=== PATIENT | female | born 1970 | race Caucasian/White ===

== ENCOUNTER 2016-12-23 14:50 | Emergency (ER) | payer OTHER ==
--- NOTE | 2016-12-23 14:54 | PDOC ---
Rapid Medical Evaluation Chief Complaint: Asthma Time Seen by Provider: 12/23/16 14:52 Medical Evaluation: Allergies Allergy/AdvReac Type Severity Reaction Status Date / Time No Known Allergies Allergy Verified 12/23/16 14:51 12/23/16 14:52 I have performed a brief in-person evaluation of this patient. The patient presents with a chief complaint of: cough and wheezing x 3 days, hx asthma, Pertinent physical exam findings: vss, Lungs clear yue, I have ordered the following: none The patient will proceed to fast track for further evaluation.
[2016-12-23 14:55] VITALS: BP 131/48; PULSE 82; TEMP 98.1; BMI 36.6
[2016-12-23] MEDS ORDERED: ALBUTEROL SO4 2.5/IPRATROPIUM 0.5 INH SOL 3 ML VIAL.NEB. NEB ONE ×2 (15:13→16:18)
--- NOTE | 2016-12-23 15:28 | PDOC ---
History of Present Illness - General Chief Complaint: Asthma Stated Complaint: SOB Time Seen by Provider: 12/23/16 14:52 History Source: Patient Exam Limitations: No Limitations - History of Present Illness Initial Comments: 12/23/16 15:24 46 yr female with cough wheezing for 3 days history of asthma. Pt denies fever or chills, states she has some pain to her left arm worse when lying on the arm at night. no chest pain. Pt has no other medical history. Pt states she was dx last year with a heart murmur had a stress test and holter monitor all was negative. Pt has no history of heart disease. Pt ran out of her inhaler. No intubations. 12/23/16 15:26 Past History - Past Medical History Allergies/Adverse Reactions: Allergies Allergy/AdvReac Type Severity Reaction Status Date / Time No Known Allergies Allergy Verified 12/23/16 14:51 Home Medications: Ambulatory Orders Albuterol Sulfate Inhaler - [Ventolin HFA Inhaler -] 1 - 2 inh PO QID #1 inhaler 12/23/16 Ibuprofen 800 mg PO TID PRN #20 tablet 12/23/16 Prednisone [Deltasone -] 40 mg PO DAILY #10 tablet 12/23/16 Asthma: Yes - Surgical History Cholecystectomy: Yes - Family Disease History Comment:: 12/23/16 15:26 none - Psycho/Social/Smoking Cessation Hx Anxiety: No Suicidal Ideation: No Smoking Status: Yes Smoking History: Never smoked Have you smoked in the past 12 months: No Number of Cigarettes Smoked Daily: 2 Information on smoking cessation initiated: No Hx Alcohol Use: No Drug/Substance Use Hx: No Substance Use Type: None Respiratory Specific PMHX - Complaint Specific PMHX Angina: No Bronchitis: No Pneumonia: No Pulmonary Embolus: No TB (Tuberculosis): No Review of Systems - Review of Systems Able to Perform ROS?: Yes Is the patient limited [place] proficient: No Constitutional: No: Symptoms Reported HEENTM: No: Symptoms Reported Respiratory: Yes: Symptoms reported, See HPI, Cough, Shortness of Breath, Wheezing Cardiac (ROS): No: Symptoms Reported ABD/GI: No: Symptoms Reported : No: Symptoms Reported Musculoskeletal: No: Symptoms Reported Integumentary: No: Symptoms Reported *Physical Exam - Vital Signs Last Vital Signs Temp Pulse Resp BP Pulse Ox 98.1 F 82 18 131/48 100 12/23/16 14:52 12/23/16 14:52 12/23/16 14:52 12/23/16 14:52 12/23/16 14:52 - Physical Exam General Appearance: Yes: Nourished, Appropriately Dressed HEENT: positive: EOMI, NEEL, Normal ENT Inspection, TMs Normal, Pharynx Normal Neck: positive: Supple. negative: Tender Respiratory/Chest: positive: Wheezing (mild exp ) Cardiovascular: positive: Regular Rhythm, Regular Rate Gastrointestinal/Abdominal: positive: Normal Bowel Sounds, Soft Musculoskeletal: positive: Normal Inspection, Vertebral Tenderness (cervical spine radiates to left lateral neck) Extremity: positive: Normal Capillary Refill, Normal Inspection, Normal Range of Motion Integumentary: positive: Normal Color, Dry, Warm Neurologic: positive: Fully Oriented, Alert, Normal Mood/Affect, Normal Response , Motor Strength 5/5 Heart Score/ECG Review - ECG Intrepretation Rhythm: Regular Rhythm - ECG Impressions Normal ECG: Yes Comment:: 12/23/16 16:25 NSR Medical Decision Making - Medical Decision Making 12/23/16 15:27 cc: cough, wheezing , ran out of inhaler speaking full sentences no acute distress vitals stable will give duoneb, CXR, prednisone, EKG , cervical spine xray r/o herniation pt has pain to left lateral neck to arm for 4 days worse when lying on that arm no numbness or tingling denies trauma to arm 12/23/16 16:38 12/23/16 pt improved after nebulizers feels better. 16:39 12/23/16 19:09 *DC/Admit/Observation/Transfer Diagnosis at time of Disposition: Asthma Qualifiers: Asthma severity: mild intermittent Asthma complication type: uncomplicated Qualified Code(s): J45.20 - Mild intermittent asthma, uncomplicated - Discharge Dispostion Disposition: HOME Condition at time of disposition: Good - Prescriptions Prescriptions: Prednisone [Deltasone -] 40 mg PO DAILY #10 tablet Ibuprofen 800 mg PO TID PRN #20 tablet PRN Reason: Pain Albuterol Sulfate Inhaler - [Ventolin HFA Inhaler -] 1 - 2 inh PO QID #1 inhaler - Referrals Referrals: Cabrera Simpson MD [Primary Care Provider] - Reginald Vaz MD [Staff Physician] - - Patient Instructions Additional Instructions: drink pleanty of water to stay hydrated use the inhaler as directed prednisone as directed next dose tomorrow follow with your doctor or rotary drier Dr. Vaz for follow up - Post Discharge Activity Work/School Note: Back to Work
[2016-12-23] MEDS ORDERED: IBUPROFEN 600 MG TABLET (FP) PO ONE ×2 (16:37→16:39)
--- NOTE | 2016-12-26 11:22 | EKG ---
Test Reason : Blood Pressure : / mmHG Vent. Rate : 075 BPM Atrial Rate : 075 BPM P-R Int : 172 ms QRS Dur : 086 ms QT Int : 392 ms P-R-T Axes : 054 021 050 degrees QTc Int : 437 ms NORMAL SINUS RHYTHM NORMAL ECG WHEN COMPARED WITH ECG OF 15-AUG-2005 23:22, QT HAS LENGTHENED Confirmed by PHOEBE CALVO MD ([id number]) on 12/26/2016 11:22:25 AM Referred By: MARLINE Confirmed By:PHOEBE CALVO MD
== END 2016-12-23 17:20 | disposition home or self-care (01) ==
LOC: JERFT 14:50
PROC: 3E0F7GC Introduction of Other Therapeutic Substance into Respiratory Tract, Via Natural or Artificial Opening (ICD-10-PCS; principal; 2016-12-23)
PROC: 3E0F7GC Introduction of Other Therapeutic Substance into Respiratory Tract, Via Natural or Artificial Opening (ICD-10-PCS; 2016-12-23)
DX: J45.20 Mild intermittent asthma, uncomplicated (principal)
CPT/HCPCS: 71020-TC; 72050-TC; 84703; 93005; 93010; 99281-25

== ENCOUNTER 2018-12-29 22:24 | Emergency (ER) | payer SELFPAY ==
--- NOTE | 2018-12-29 22:37 | PDOC ---
History of Present Illness - General History Source: Patient Exam Limitations: No Limitations - General Chief Complaint: Chest Pain Stated Complaint: CHEST PAIN Time Seen by Provider: 12/29/18 22:27 - History of Present Illness Initial Comments: 12/29/18 22:47 The patient is a 48-year-old female who presents to the emergency department with chest discomfort. The patient reports shes been having several weeks of L. sided chest discomfort that radiates to the back and the L. axillary region, thats pinching in quality. The patient reports the symptoms last for 2-3 hours before self-resolving. The patient reports associated symptoms of diaphoresis with exertion denies any modifying factor that alleviates or aggravates the pain. Denies known cholesterol problem, nausea, vomiting, abdominal pain or pain with deep breathing. PAST MEDICAL HISTORY: DM and asthma PAST SURGICAL HISTORY: no significant history FAMILY HISTORY: no family history of heart problem SOCIAL HISTORY: pt denies the use of drug and tobacco. MEDICATIONS: reviewed ALLERGIES: As per nursing notes General: No fevers or chills, no weakness, no weight loss HEENT: No change in vision. No sore throat,. No ear pain CardioVascular: +chest discomfort. No chest pain or shortness of breath Respiratory:No cough, or wheezing. Gastrointestinal: no nausea, vomiting, diarrhea or constipation, No rectal bleeding Genitourinary: No dysuria, hematuria, or frequency Musculoskeletal: No joint or muscle pain or swelling Neurologic: No headache, vertigo, dizziness or loss of consciousness Psychiatric: nor depression Skin: No rashes or easy bruising Endocrine: no increased thirst or abnormal weight change Allergic: no skin or latex allergy All other systems reviewed and normal General: Well-nourished well-developed individual, no acute distress HEENT: Throat: Normal, tonsils normal, no erythema or exudate Neck: Supple, no meningeal signs, no lymphadenopathy Eyes::Pupils equal reactive and round, extraocular motion intact Chest: Nontender to palpation Cardiac: S1-S2 normal, regular rate and rhythm, no murmurs rubs or gallops Respiratory: Lungs clear to auscultation bilateral Abdomen: Soft, nondistended, normal bowel sounds, nontender to palpation diffusely Extremities: Warm, dry, no cyanosis, clubbing, or edema Skin: No rashes Neuro: Alert and oriented x3, nonfocal exam, grossly intact, normal gait Psych: Normal mood and affect Documentation prepared by Chante Cazares, acting as bacteriologist medical for Chetna Samayoa MD. (Chante Cazares) A portion of this note was documented by scribe services under my direction. I have reviewed the details of the note, within reason, and agree with the documentation with the following case summary and management plan written by me. Patient treated in the ED. Nursing notes are reviewed and incorporated into the medical decision-making. Vital signs reviewed. EKG normal sinus rhythm at a rate of [address]-T wave changes normal EKG Assessment and plan: This is 48-year-old female who comes in complaining of some mild left-sided chest discomfort without any associated symptoms. Patient does have one risk factor diabetes however her cardiogram is completely normal and her heart score is 2. 12/29/18 22:52 12/29/18 22:54 (Chetna Samayoa I) Past History - Past Medical History Asthma: Yes - Surgical History Cholecystectomy: Yes - Suicide/Smoking/Psychosocial Hx Smoking Status: Yes Smoking History: Never smoked Have you smoked in the past 12 months: No Number of Cigarettes Smoked Daily: 2 Hx Alcohol Use: No Drug/Substance Use Hx: No Substance Use Type: None - Past Medical History Allergies/Adverse Reactions: Allergies Allergy/AdvReac Type Severity Reaction Status Date / Time No Known Allergies Allergy Verified 12/23/16 14:51 Home Medications: Ambulatory Orders Albuterol Sulfate Inhaler - [Ventolin HFA Inhaler -] 1 - 2 inh PO PRN PRN Metformin HCl [Glucophage] 1,000 mg PO BID 12/29/18 Cardiac Specific PMH - Complaint Specific PMHX Angina: No Pulmonary Embolus: No - Vital Signs Last Vital Signs Temp Pulse Resp BP Pulse Ox 98.2 F 75 16 143/78 100 12/29/18 22:24 12/29/18 22:24 12/29/18 22:24 12/29/18 22:24 12/29/18 22:24 Heart Score/ECG Review - History History: Slightly suspicious - Electrocardiogram EKG: Normal - Age Age: 45-65 - Risk Factors Risk Factors Heart Score: Yes Hx Diabetes Based on the list above the patient has:: 1-2 risk factors - Troponin Troponin: </= normal limit - Score Heart Score - Total: 2 - Procedure Monitoring Vital Signs: Procedure Monitoring Vital Signs Temperature 98.2 F 12/29/18 22:24 Pulse Rate 75 12/29/18 22:24 Respiratory Rate 16 12/29/18 22:24 Blood Pressure 143/78 12/29/18 22:24 O2 Sat by Pulse Oximetry (%) 100 12/29/18 22:24 - ADDITIONAL ORDERS Additional order review: Laboratory Results 12/29/18 12/29/18 22:55 22:55 Creatine Kinase 59 Troponin I < 0.03 *DC/Admit/Observation/Transfer - Discharge Dispostion Decision to Admit order: No Diagnosis at time of Disposition: Chest pain, atypical - Discharge Dispostion Disposition: HOME Condition at time of disposition: Stable - Referrals Referrals: Cabrera Simpson MD [Primary Care Provider] - - Patient Instructions Printed Discharge Instructions: DI for Atypical Chest Pain Additional Instructions: Return to the emergency department immediately with ANY new, persistent or worsening symptoms. Continue any medications as previously prescribed by your physician. You should follow up with your primary doctor as soon as possible regarding today's emergency department visit. . Please make sure your doctor reviews the results of your emergency evaluation. Thank you for coming to the Emergency Department today for your care. It was a pleasure to see you today. Please note that your evaluation is INCOMPLETE until you follow-up with your doctor. - Post Discharge Activity
[2018-12-29 22:40] VITALS: BP 143/78; PULSE 75; TEMP 98.2; BMI 33.8
--- NOTE | 2018-12-31 11:22 | EKG ---
Test Reason : Blood Pressure : / mmHG Vent. Rate : 074 BPM Atrial Rate : 074 BPM P-R Int : 176 ms QRS Dur : 090 ms QT Int : 388 ms P-R-T Axes : 051 027 052 degrees QTc Int : 430 ms NORMAL SINUS RHYTHM NORMAL ECG WHEN COMPARED WITH ECG OF 23-DEC-2016 15:36, NO SIGNIFICANT CHANGE WAS FOUND Confirmed by GARRETT ALVARADO MD ([id number]) on 12/31/2018 11:22:24 AM Referred By: Confirmed By:GARRETT ALVARADO MD
== END 2018-12-29 23:31 | disposition home or self-care (01) ==
LOC: FER 22:24
DX: R07.89 Other chest pain (principal); J45.909 Unspecified asthma, uncomplicated
CPT/HCPCS: 36415; 82550; 84484; 93005; 99282-25

== ENCOUNTER 2020-10-19 05:28 | Day surgery (SDC) | payer BC ==
[2020-10-12 11:42] VITALS: BMI 34.5
[2020-10-19] MEDS ORDERED: MIDAZOLAM HCL 2 MG/2 ML SINGLE DOSE VIAL ONE (08:34)
[2020-10-19] MEDS ORDERED: ACETAMINOPHEN 325 MG TABLET (FP) PO PRN (09:06)
[2020-10-19] MEDS ORDERED: IBUPROFEN 400 MG TABLET (FP) PO PRN (09:06)
[2020-10-19] MEDS ORDERED: oxyCODONE HCL 5 MG TABLET PO PRN ×2 (09:06→10:34)
[2020-10-19] MEDS ORDERED: ONDANSETRON 4 MG/2 ML VIAL IVPUSH PRN (09:07)
[2020-10-19] MEDS ORDERED: DEXAMETHASONE SOD PHOSPHATE 4 MG/1 ML VIAL ONE (09:12)
[2020-10-19] MEDS ORDERED: SUCCINYLCHOLINE CHLORIDE 200 MG/10 ML SYRINGE ONE (09:14)
[2020-10-19] MEDS ORDERED: LACTATED RINGERS SOLUTION 1,000 ML IV SCH (10:45)
[2020-10-19 12:47] VITALS: BP 112/68; PULSE 58
[2020-10-19 12:53] VITALS: TEMP 98
== END 2020-10-19 12:53 | disposition home or self-care (01) ==
LOC: JASU-SURG 05:28
PROVIDERS: ATTEND Obstetrics & Gynecology
PROC: 0U5B8ZZ Destruction of Endometrium, Via Natural or Artificial Opening Endoscopic (ICD-10-PCS; principal; 2020-10-19 09:00)
DX: N92.0 Excessive and frequent menstruation with regular cycle (principal)
CPT/HCPCS: 36415; 82962; 84703; 86922; 94760

== ENCOUNTER 2022-12-03 19:21 | Emergency (ER) | payer BC, OTHER ==
[2022-12-03 19:31] VITALS: BP 139/79; TEMP 100.5; BMI 38.4
[2022-12-03] MEDS ORDERED: ACETAMINOPHEN 500 MG TABLET (FP) PO ONE (20:11)
[2022-12-03] MEDS ORDERED: DEXAMETHASONE 0.5 MG TABLET PO ONE (20:12)
[2022-12-03] MEDS ORDERED: DEXAMETHASONE SOD PHOSPHATE 10 MG/1 ML VIAL ONE (20:14)
[2022-12-03] MEDS ORDERED: ALBUTEROL SO4 2.5/IPRATROPIUM 0.5 INH SOL 3 ML VIAL.NEB. NEB ONE ×2 (20:14)
[2022-12-03] MEDS ORDERED: ACETAMINOPHEN 325 MG TABLET (FP) ONE (20:15)
[2022-12-03 20:53] VITALS: PULSE 100; RESP 20
== END 2022-12-03 20:58 | disposition home or self-care (01) ==
LOC: JER 19:21
PROC: 3E0F7GC Introduction of Other Therapeutic Substance into Respiratory Tract, Via Natural or Artificial Opening (ICD-10-PCS; principal; 2022-12-03)
DX: J45.909 Unspecified asthma, uncomplicated (principal); R05.1 Acute cough
CPT/HCPCS: 0241U-QW; 71046-TC-FY; 93005; 93010; 99285-25; J8540